=== PATIENT | male | born 1980 | race Caucasian/White ===

== ENCOUNTER 2023-07-20 21:14 | Emergency (ER) | payer BC, SELFPAY ==
[2023-07-20 21:14] VITALS: BMI 31.8
[2023-07-20 21:20] VITALS: BP 163/104
[2023-07-20 22:00] VITALS: BP 148/79
[2023-07-20 22:04] LABS: % Basophils 0.4 % (0-2); % Eosinophils 1.2 % (0-6); % Immature Granulocytes 0.5 % (0-0.5); % Lymphocytes 13.8 % (20.5-51.1); % Monocytes 8.6 % (1.7-9.3); % Neutrophils 75.5 % (42.2-75.2); Absolute Basophils 0.1 10^3/uL (0-0.2); Absolute Eosinophils 0.2 10^3/uL (0-0.7); Absolute Immature Granulocytes 0.1 10^3/uL (0-0.05); Absolute Lymphocytes 1.7 10^3/uL (1.2-3.4); Absolute Monocytes 1.1 10^3/uL (0.1-0.6); Absolute Neutrophils 9.6 10^3/uL (1.4-6.5); Hematocrit 44.3 % (39.0-52.0); Hemoglobin 16.4 g/dL (13.0-18.0); Mean Corpuscular Hgb 32.8 pg (27.0-31.0); Mean Corpuscular Volume 88.6 fL (80.0-94.0); Mean Platelet Volume 8.9 fL (7.4-10.4); Nucleated Red Blood Cells % 0 % (-); Platelet Count 201 10^3/uL (130-400); Red Cell Dist. Width 11.9 % (11.5-14.5); White Blood Cell Count 12.6 10^3/uL (4.8-10.8)
[2023-07-20 22:05] LABS: Urine Albumin Negative (Neg - Trace); Urine Bilirubin Negative (Negative); Urine Character Slightly Cloudy (Clear); Urine Color Yellow; Urine Glucose Negative (Negative); Urine Ketone 1+ (Negative); Urine Leukocyte Negative (Negative); Urine Nitrite Negative (Negative); Urine Occult Blood 1+ (Negative); Urine Specific Gravity 1.015 (<1.030); Urine Urobilinogen Negative (Neg - 1+)
[2023-07-20 22:11] LABS: Urine Bacteria Moderate (Negative); Urine White Cell 0-2 /HPF (0-5)
[2023-07-20] MEDS: TORADOL 30 MG IV (22:15)
[2023-07-20] MEDS: NSS 1000 IV (22:15)
--- NOTE | 2023-07-20 22:29 | ED.GENMED ---
History of Present Illness
General
Chief Complaint: Abdominal Pain
Source: patient
Exam Limitations: none
Time Seen by Provider: 07/20/23 21:52
Travel History
Have you had any contact with someone who has COVID-19?: No
Do you have any symptoms of coronavirus? Fever > 100 degrees, chills, cough, shortness of breath, sore throat, loss of taste or smell, muscle aches, or headache?: No
History of Present Illness
History of Present Illness:
This is a 43 year old male that comes in with c/o left sided abd pain. States that on Wednesday and Wednesday he had diarrhea. States that he took Imodium on Wednesday. Then yesterday he felt something different in his abd. States that today the pain
continued to get worse all day. States that the pain goes down into the left testicle and he has pressure on the bladder. States that it feels like he has to go. States that he was nauseated. Denies any fever, chills, chest pain SOB, vomiting
diarrhea, headache, dizziness, urinary burning.
Past History
Past History
ED Past Medical History: None; Negative Asthma, HTN, Hypercholesterolemia or NIDDM
ED Past Surgical History: Urological (Vasectomy) and Other (Sinus surgery x 2)
Social History
Tobacco: Non-smoker
Alcohol: Occasional
Personal:
Living: with family
Review of Systems
Review of Systems
All Other Systems: ROS reviewed and negative except as documented in HPI and ROS
Constitutional: Reports no symptoms; Denies fever or chills
EENT: Reports no symptoms
Respiratory: Reports no symptoms; Denies cough or trouble breathing
Cardiac: Denies chest pain
ABD/GI: Reports abdominal pain and nausea; Denies vomiting or diarrhea
: Reports no symptoms; Denies dysuria, frequency or urgency
Musculoskeletal: Reports no symptoms
Skin: Reports no symptoms
Neurological: Reports no symptoms; Denies dizzy or headache
Psychiatric: Reports no symptoms
Phy Exam
General Physical Exam
General Presentation: no apparent distress
General age: appears stated age
General Skin: warm and dry
General Habitus: normal
General Mental: alert
General Hydration: appears well hydrated
ENT Exam
ENT Exam: TM's normal, pharynx normal and neck supple
Eye Exam
Eye Exam: EOMI
Cardiovascular Exam
Cardiovascular Exam: regular rate/rhythm, no edema, no murmur and normal peripheral pulses
Pulmonary Exam
Pulmonary Exam: lungs clear, no respiratory distress, no rales, chest non tender, no crackles, no rhonchi, no wheezing and no cough
Gastrointestinal Exam
Gastrointestinal Exam: normal bowel sounds, soft, no organomegaly, no pulsatile mass, non distended and tender (Left sided tenderness with palpation)
Musculoskeletal Exam
Musculoskeletal Exam: full ROM and no edema
Skin Exam
Skin Exam: normal color, warm/dry, no rash and no petechia
Psychiatric Exam
Psychiatric Exam: normal mood/affect
Course
Orders/Labs/Results
Orders:
Orders
07/20/23 21:53
IV Insert/Care/Rem.- Treatment PRN
07/20/23 21:55
Complete Blood Count/With Diff Urgent
Urinalysis Reflex To Culture Urgent
Date Specimen was Collected: 07/20/23
Time Specimen was Collected: 21:53
Urine Microscopic Reflex Cult Urgent
Urine Culture Urgent
PANKAJ Source: U
Specimen Description:
Date Specimen was Collected: 07/20/23
Time Specimen was Collected: 21:53
07/20/23 22:12
CT Abd/pelvis W Iv Cont Urgent
Comment:
Reason For Exam: Left sided abd pain
0.9% Sodium Chloride 1000 ml [Nss] 1,000 ml IV BOLUS
Ketorolac [Toradol] 30 mg IV NOW STA
07/20/23 22:23
Comprehensive Metabolic Panel Urgent
Lipase Urgent
Abnormal Lab Results
07/20/23 07/20/23
21:55 22:23
WBC 12.6 H 10^3/uL
(4.8-10.8)
MCH 32.8 H pg
(27.0-31.0)
Abs Immat Gran (auto) 0.1 H 10^3/uL
(0-0.05)
Absolute Neuts (auto) 9.6 H 10^3/uL
(1.4-6.5)
Absolute Monos (auto) 1.1 H 10^3/uL
(0.1-0.6)
Neutrophils % 75.5 H %
(42.2-75.2)
Lymphocytes % 13.8 L %
(20.5-51.1)
Glucose 101 H mg/dl
(70-99)
Urine Ketones 1+ A
(Negative)
Ur Occult Blood Reflex 1+ A
(Negative)
Urine RBC 7-10 A /HPF
(0-2)
Urine Bacteria (Reflex) Moderate A
(Negative)
07/20/23 21:55
07/20/23 22:23
Leukocytosis, Glucose nonfasting. Urine negative for infection but positive for blood, Lipase normal at 79
Vital Signs
Initial and Last Documented VS:
Initial Vital Signs
Temp Pulse Resp BP Pulse Ox
98.9 F 100 18 163/104 99
07/20/23 21:20 07/20/23 21:20 07/20/23 21:20 07/20/23 21:20 07/20/23 21:20
Last Documented Vital Signs
Temp Pulse Resp BP Pulse Ox
98.9 F 100 18 148/79 97
07/20/23 21:20 07/20/23 21:20 07/20/23 21:20 07/20/23 22:00 07/20/23 22:00
MDM/Problems Addressed
Differential Diagnosis Includes:
Renal calculus. Diverticulitis.
MDM/Problems Addressed:
This is a 43 year old male that comes in with c/o left sided abd pain. States that he had diarrhea on Wednesday and Wednesday for which he used Imodium and this stopped. States that yesterday his abd did not feel right and today he has had increased
pain on the left side that goes down into his testicle.
Will get labs. CT scan, IV fluids, Urine and pain medication.
Back into see patient. Explained that he has Diverticulitis. Will start patient on antibiotics. Offered patient admission but he felt he could go home. Will start oral antibiotics here and send prescriptions to his pharmacy. Patient to follow up
with the family doctor in 5-7 days for recheck. Patient to return with increased or changing pain, fever, or any other concerns.
Chronic conditions affecting care:
NA
Acute Exacerbation and/or Progression of Chronic Illness:
NA
*Radiology
Radiology exam reviewed: radiology read reviewed (CT-Acute diverticulitis of the distal descending colon. No evidence for perforation or pericolonic abscess. )
*Pulse Oximetry
Patient hypoxic: no
*EKG
Interpreted by ED Provider?: NA
Rate: EKG- N/A
*Air Control/Anti Air Warfare Officer Interpretation
Rate: Air Control/Anti Air Warfare Officer- N/A
*Critical Care Note
Total Time (30-74mins, 75-104mins- exclusive of procedures): Not Applicable
ED Attending Note
-
Portions of this chart may have been created with voice recognition software.� Occasional wrong word or��sound alike� substitutions may have occurred due to the inherent limitations of voice recognition software.
Discharge Plan
Departure
Patient Disposition: Home (Routine Discharge)
Date of Disposition: 07/20/23
Time of Disposition: 23:13
Patient with high blood pressure during this ER visit?: Yes
Condition: Good
Covid-19: Not Applicable
Discharge Problem:
Acute diverticulitis of intestine
Instructions: Diverticulitis (DC), BLOOD PRESSURE
Prescriptions:
New
levofloxacin 500 mg tablet
500 mg PO DAILY 10 Days Qty: 9 0RF
metronidazole 500 mg tablet
500 mg PO TID Qty: 29 0RF
No Action
hydrocodone-acetaminophen 1 TABLET tablet
1 tab PO Q4HPRN PRN (Reason: severe pain) Qty: 20 0RF
hydrocodone-acetaminophen 1 TABLET tablet
1 tab PO Q4HPRN PRN (Reason: pain) Qty: 15 0RF
Referrals:
Lou Petersen PA-C [Family Provider] - Follow up in 5-7 days
Activity Restrictions/Additional Instructions:
As discussed, you have acute diverticulitis. You have been given your first dose of antibiotic here and prescriptions have been sent to your Pharmacy. If you hare having any diarrhea please stay away form milk and milk products as this is hard for
the gut to digest. Please increase your water intake to 8-8oz glasses daily. Follow up with the family doctor in the next 5-7 days for recheck. IF YOU HAVE INCREASED PAIN, FEVER, VOMITING, OR YOU HAVE ANY OTHER CONCERNS PLEASE RETURN TO THE
EMERGENCY ROOM.
Interventions
Interventions:
*Risk Screen - Suicide Last Done: 07/20/23 21:20
*General Assessment Last Done: 07/20/23 21:20
*Neglect/Abuse Screening Last Done: 07/20/23 21:20
XZ-Eugkcf-Ocnstteayt Assessment Last Done: 07/20/23 22:05
Discharge Date and Time
Print Language: [id number]
[2023-07-20 22:51] LABS: ALT (SGPT) 22 U/L (0-50); AST (SGOT) 26 U/L (17-59); Albumin 4.2 g/dl (3.5-5.0); Alkaline Phosphatase 68 U/L (38-126); Blood Urea Nitrogen 14 mg/dl (9-20); Calcium 9.5 mg/dl (8.4-10.2); Carbon Dioxide 24 mmol/L (22-30); Chloride 101 mmol/L (98-107); Estimated Creatinine Clearance > 125 ml/min; Glucose 101 mg/dl (70-99); Potassium 3.6 mmol/L (3.5-5.1); Sodium 135 mmol/L (135-145); Total Bilirubin 1.2 mg/dl (0.2-1.3); Total Protein 6.6 g/dl (6.3-8.2); eGFR > 60.00
[2023-07-20 22:52] VITALS: BP 132/74
[2023-07-20 22:52] LABS: Lipase 79 U/L (23-300)
[2023-07-20 23:00] VITALS: BP 131/77
[2023-07-20] MEDS: LEVAQUIN 500 MG PO (23:22)
[2023-07-20] MEDS: FLAGYL 500 MG PO (23:22)
== END 2023-07-20 23:41 | disposition home or self-care (01) ==
LOC: EMR 21:14
PROVIDERS: Clinical Nurse Specialist Family Health; EMERGENCY PHYSICIAN Emergency Medicine; FAMILY PHYSICIAN Physician Assistant
DX: K57.32 Diverticulitis of large intestine without perforation or abscess without bleeding (principal); R03.0 Elevated blood-pressure reading, without diagnosis of hypertension
CPT/HCPCS: 99285; 96374; 96361; 74177; 80053; 81003; 81015; 83690; 85025; 87086; Q9967